=== PATIENT | female | born 1995 | race African-American/Black ===

== ENCOUNTER 2021-02-15 14:02 | Emergency (ER) | payer OTHER ==
[~2021-02-15] VITALS: Ht 162.6 cm; Wt 79.8 kg
[2021-02-15 14:05] VITALS: BP 110/73
[2021-02-15] MEDS ORDERED: AUGMENTIN 875-1 EACH PO (14:37)
== END 2021-02-15 14:59 | disposition home or self-care (01) ==
LOC: ER 14:02
DX: S61.253A Open bite of left middle finger without damage to nail, initial encounter (principal); Z88.1 Allergy status to other antibiotic agents; Z88.5 Allergy status to narcotic agent; Z91.040 Latex allergy status; W50.3XXA Accidental bite by another person, initial encounter; Y93.89 Activity, other specified; Y92.89 Other specified places as the place of occurrence of the external cause; Y99.8 Other external cause status